=== PATIENT | male | born 1990 | race Caucasian/White ===

== ENCOUNTER → 2017-03-02 | Outpatient (CLI) | payer OTHER ==
--- NOTE | 2017-03-02 15:14 | KCIC ---
MR of the right knee HISTORY: Right knee pain. Anterior swelling with activity. Pain for 4 to 6 weeks. Posterior pain. TECHNIQUE: Routine multiplanar sequences are obtained. FINDINGS: No evidence of medial meniscal tear. No evidence of lateral meniscal tear. Anterior and posterior cruciate ligaments are intact. Medial collateral ligament intact. Fibular collateral ligament, biceps femoris tendon and popliteus tendon are intact. Extensor mechanism is intact. Moderate joint effusion. No evidence of osteochondral loose body. Full-thickness oblique fissure of the medial patellar cartilage resulting in a small nondisplaced chondral flap. Note that the tip of the flap does extend beyond the surface of the adjacent cartilage, axial series 3, image 10. No bone lesion or acute fracture. Small Grubbs's cyst. Mild fluid dissects from the cyst laterally, could represent leakage or rupture. IMPRESSION: 1. Full-thickness articular cartilage fissure at the medial patellar facet resulting in a small cartilage flap. 2. Small Grubbs's cyst with mild leakage or rupture. Electronically signed by: Jose Sharp MD (03/02/2017 3:11 PM)
== END | disposition home or self-care (01) ==
LOC: KCIC MRI 13:32
PROVIDERS: ATTEND Family Medicine
DX: M25.561 Pain in right knee (principal)
CPT/HCPCS: 73721